=== PATIENT | female | born 1975 | race American Indian/Alaskan Native ===

== ENCOUNTER 2018-01-04 16:52 | Emergency (ER) | payer SELFPAY ==
[2018-01-04 17:45] LABS: Basophils % (Auto) 1.7 % (0.0-1.8); Eosinophils % (Auto) 7.3 % (0.0-4.3); Hematocrit 24.5 % (30.3-42.9); Hemoglobin 7.5 gm/dl (10.1-14.3); Lymphocytes # (Auto) 0.3 K/mm3 (1.2-5.4); Lymphocytes % (Auto) 42.4 % (13.4-35.0); Mean Corpuscular HGB Conc 31 % (30-34); Mean Corpuscular Hemoglobin 20 pg (28-32); Mean Corpuscular Volume 65 fl (79-97); Mean Platelet Volume 8.1 fl (6-12); Monocytes # (Auto) 0.3 K/mm3 (0.0-0.8); Monocytes % (Auto) 5.7 % (0.0-7.3); Platelet Count 552 K/mm3 (140-440); Red Blood Count 3.74 M/mm3 (3.65-5.03); Red Cell Distribution Width 19.2 % (13.2-15.2)
[2018-01-04 17:46] LABS: Basophils # (Auto) 0.1 K/mm3 (0.0-0.1); Eosinophils # (Auto) 0.4 K/mm3 (0.0-0.4)
--- NOTE | 2018-01-04 22:00 | Emergency Department Report ---
ED Medical Clearance HPI - General Chief complaint: Medical Clearance Stated complaint: ABNORMAL LABS/RISHABH Time Seen by Provider: 01/04/18 21:46 Source: patient, RN notes reviewed Mode of arrival: Ambulatory Limitations: No Limitations - History of Present Illness Initial comments: This is a 42-year-old female who was previously unknown to this provider. Patient is sent to the ER for evaluation of low hemoglobin, hematocrit. Apparently she had outpatient laboratory studies which demonstrated a hemoglobin of 6.6. Past medical history also includes hypothyroidism, high cholesterol. She is not . She describes months of intermittent shortness of breath. It is painless. It worsens with physical exertion. It decreases with rest. There is no leg pain, there is no leg swelling, she does not take oral contraceptives, and she denies DVT/pulmonary embolus risk factors. There is no hematemesis, there is no bright red blood per rectum, she reports heavy menstruation. She further reports that her primary care doctor started her on iron supplementation. MD Complaint: medical clearance request -: month(s) Reason for Medical Clearance: laboratory abnormality Place: home Alledged Intoxication: No Compliant with Home Medications: Yes Traumatic Symptoms: denies traumatic injury Associated Symptoms: shortness of breath, denies other symptoms. denies: chest pain, palpitations, diaphoresis, confusion, cough, fever/chills, headaches, anorexia, malaise, nausea/vomiting, rash, seizure, syncope, weakness Allergies/Adverse reactions: Allergies Allergy/AdvReac Type Severity Reaction Status Date / Time No Known Allergies Allergy Unverified 01/04/18 16:59 ED Review of Systems ROS: Stated complaint: ABNORMAL LABS/RISHABH Other details as noted in HPI Comment: All other systems reviewed and negative ED Past Medical Hx - Past Medical History Hx Hypertension: Yes Additional medical history: hypothyroid, high cholesterol, anemia - Surgical History Additional Surgical History: C/S x3 - Social History Smoking Status: Never Smoker Substance Use Type: None ED Physical Exam - General Limitations: No Limitations General appearance: alert, in no apparent distress - Head Head exam: Present: atraumatic, normocephalic - Eye Eye exam: Present: normal appearance, EOMI, other (the conjunctiva are not pale) . Absent: nystagmus - ENT ENT exam: Present: normal exam, normal orophraynx, mucous membranes moist, normal external ear exam - Neck Neck exam: Present: normal inspection, full ROM - Respiratory Respiratory exam: Present: normal lung sounds bilaterally. Absent: respiratory distress - Cardiovascular Cardiovascular Exam: Present: regular rate, normal rhythm, normal heart sounds. Absent: systolic murmur, diastolic murmur, rubs, gallop - GI/Abdominal GI/Abdominal exam: Present: soft, normal bowel sounds. Absent: distended, tenderness, guarding, rebound, rigid, pulsatile mass - Extremities Exam Extremities exam: Present: normal inspection, full ROM, normal capillary refill. Absent: pedal edema, joint swelling, calf tenderness - Back Exam Back exam: Present: normal inspection, full ROM. Absent: tenderness, CVA tenderness (R), paraspinal tenderness, vertebral tenderness - Neurological Exam Neurological exam: Present: alert, oriented X3, CN II-XII intact, normal gait, other (Extraocular movements intact. Tongue midline. No facial droop. Facial sensation intact to light touch in the V1, V2, V3 distribution bilaterally. 5 and 5 strength in 4 extremities.. Sensation is intact to light touch in 4 extremities.). Absent: motor sensory deficit - Psychiatric Psychiatric exam: Present: normal affect, normal mood - Skin Skin exam: Present: warm, dry, intact, normal color. Absent: rash ED Course Vital Signs 01/04/18 01/04/18 01/04/18 16:59 21:13 23:30 Temperature 98.9 F 99.3 F 98.8 F Pulse Rate 102 H 79 92 H Respiratory 18 16 16 Rate Blood Pressure 145/91 Blood Pressure 132/81 116/92 [Left] O2 Sat by Pulse 100 95 98 Oximetry ED Medical Decision Making - Lab Data Result diagrams: 01/04/18 17:12 Vital Signs 01/04/18 01/04/18 01/04/18 16:59 21:13 23:30 Temperature 98.9 F 99.3 F 98.8 F Pulse Rate 102 H 79 92 H Respiratory 18 16 16 Rate Blood Pressure 145/91 Blood Pressure 132/81 116/92 [Left] O2 Sat by Pulse 100 95 98 Oximetry - EKG Data -: EKG Interpreted by Al - EKG Data When compared to previous EKG there are: previous EKG unavailable 01/05/18 00:16 Normal sinus, 93 bpm, left axis deviation, left anterior fascicular block, abnormal EKG, not morphologically consistent with ST elevation myocardial infarction - Medical Decision Making Differential diagnosis, including but not limited to: Anemia, chronic shortness of breath, medical clearance Assessment and plan: 42-year-old female with months of shortness of breath. Her hemoglobin/hematocrit today are 7. 5/25. She is microcytic. Patient is taking ferrous sulfate supplementation. The patient is not short of breath, she is able to walk around the ER briskly with me, while talking simultaneously in full sentences. There are no pulmonary embolus or DVT risk factors and the patient is low risk by well's criteria. Had no focal pulmonary findings, therefore I do not feel that the patient requires an x-ray of the chest. Patient observed in the ER for hours without clinical decompensation. Given all of the above, I do not believe she requires emergent transfusion of packed red blood cells, and the patient prefers to not have a transfusion anyhow because of concern for allergy , anaphylaxis, and blood borne diseases. She is suitable to follow up with outpatient primary care doctor. Return precautions are reviewed. ED Disposition Clinical Impression: Microcytic anemia Disposition: DC- TO HOME OR SELFCARE Is pt being admited?: No Does the pt Need Aspirin: No Condition: Stable Instructions: Iron Deficiency Anemia (ED) Additional Instructions: Continue iron sulfate supplementation. Continue iron sulfate supplementation. Follow-up with a primary care doctor or well logging captain mud analysis within the next week to 2 weeks. Return to the ER right away with new pain, worsened pain, migration of pain, fevers, chills, lethargy, irritability The patient's EKG demonstrated a nonspecific abnormality; left axis deviation with left anterior fascicular block. This should be followed up by a control room technician or primary care doctor within the next month. Referrals: [facility] [Provider Group] - 3-5 Days [facility] [Provider Group] - 3-5 Days [facility] [Provider Group[facility] - 3-5 Days [facility] [Primary Care Provider] - 3-5 Days [facility] [Provider Group] - 3-5 Days [facility] [Provider Group] - 3-5 Days
[2018-01-05 00:52] VITALS: BP 119/75
== END 2018-01-05 00:51 | disposition home or self-care (01) ==
LOC: ED 16:52
DX: D50.9 Iron deficiency anemia, unspecified (principal); I10 Essential (primary) hypertension
CPT/HCPCS: 36415; 85025; 86850; 86900; 86901; 93005; 93010